=== PATIENT | male | born 1990 | race Caucasian/White ===

== ENCOUNTER 2023-10-26 08:16 | Emergency (ER) | payer OTHER, SELFPAY ==
[2023-10-26 08:27] VITALS: BP 165/79; PULSE 93; RESP 18; TEMP 36.2; O2SAT 100
--- NOTE | 2023-10-26 08:54 | ED.EAR ---
HPI - Ear Problem General Chief complaint: Ear Stated complaint: Ear Pain Time Seen by Provider: 10/26/23 08:40 Source: patient and RN notes reviewed Mode of arrival: ambulatory Limitations: no limitations History of Present Illness HPI Narrative: Patient presents today complaining of 2 day history of clogging to the left ear. He has been using Debrox drops and flushing with water without much relief. Reports he woke up this morning and could not hear from the left ear at all. No pain. No cold symptoms. Related Data Home Medications Medication Instructions Recorded Confirmed No Home Medications 02/22/21 10/26/23 Allergies Allergy/AdvReac Type Severity Reaction Status Date / Time sulfamethizole Allergy Unknown Rash Verified 10/26/23 08:25 trimethoprim Allergy Unknown Rash Verified 10/26/23 08:25 Review of Systems Review of Systems: CONSTITUTIONAL: Denies body aches, fever, chills, or sweats. EYES: Denies visual changes, redness, or discharge. ENT: Denies rhinorrhea, congestion, sore throat, or otalgia.+ left ear clogged. CARDIOVASCULAR: Denies chest pain, palpitations, or edema. RESPIRATORY: Denies cough or dyspnea. GASTROINTESTINAL: Denies abdominal pain, nausea, vomiting, or diarrhea. GENITOURINARY: Denies dysuria or hematuria. SKIN: Denies rash, itching, or wounds. MUSCULOSKELETAL: Denies back pain, joint pain, or myalgia. NEUROLOGIC: Denies headache, numbness, tingling, or weakness. PSYCH: Denies depression or anxiety. PMFSH Past Medical History Medical History Encounter for screening for other metabolic disorders General medical exam Influenza-like illness Need for lipid screening Sebaceous cyst Visit for suture removal Family History Family History Mother Hypertension Acute myocardial infarction Carcinoma of colon Father Family history of arthritis Social History Social History Smoking status: Never smoker Second hand tobacco smoke exposure: No Alcohol intake: current Drinks per week: 1 Substance use: never Living arrangements: with family Occupation/Education: occupation Additional occupation/education comments: IT Gender identity (if verbalized by the patient): Male Comments At time of signature, I have reviewed and agree with nursing past medical, surgical, social and family history unless otherwise noted. Please see nursing chart for further information. There is no relevant family history pertinent to the presenting complaint Exam Narrative: GENERAL: Well-appearing, well-nourished, and in no acute distress. HEAD: Normocephalic, atraumatic. EYES: EOMI. No redness or drainage. Conjunctivae normal. ENT: Mucous membranes pink and moist. Nares clear. No rhinorrhea. Left TM occluded with cerumen impaction. See procedure note NECK: Normal AROM. CHEST: No respiratory distress. EXTREMITIES: Normal range of motion. No edema. SKIN: Warm, dry, no rash. Capillary refill normal. Normal skin turgor. NEURO: No focal deficits. Alert and oriented x3. Gait steady. PSYCH: Normal affect. No signs of depression or anxiety. Course Course Level of Care: Express Care Visit Vital Signs Vital signs: Vital Signs Temperature 97.1 F L 10/26/23 08:27 Pulse Rate 93 10/26/23 08:27 Respiratory Rate 18 10/26/23 08:27 Blood Pressure 165/79 H 10/26/23 08:27 Pulse Oximetry 100 10/26/23 08:27 Oxygen Delivery Room Air 10/26/23 08:27 Temperature 97.1 F L 10/26/23 08:27 Pulse Rate 93 10/26/23 08:27 Respiratory Rate 18 10/26/23 08:27 Blood Pressure 165/79 H 10/26/23 08:27 Pulse Oximetry 100 10/26/23 08:27 Oxygen Delivery Room Air 10/26/23 08:27 Reviewed Procedures Ear Wax Removal Left Ear: Ear Wax Removal Date: 10/26/23 Ear Wax Re
== END 2023-10-26 09:02 | disposition home or self-care (01) ==
PROVIDERS: Emergency Provider Nurse Practitioner
DX: H61.22 Impacted cerumen, left ear (principal)
CPT/HCPCS: 69210; 99212; G0463